=== PATIENT | female | born 2000 | race Two or more races ===

== ENCOUNTER 2021-07-18 17:53 | Emergency (ER) | payer OTHER | END 2021-07-18 20:52 | disposition home or self-care (01) | LOC: NAV ERS 17:53 | DX: O9A.213 Injury, poisoning and certain other consequences of external causes complicating pregnancy, third trimester (principal); S02.2XXA Fracture of nasal bones, initial encounter for closed fracture; W22.8XXA Striking against or struck by other objects, initial encounter; Z3A.28 28 weeks gestation of pregnancy | CPT/HCPCS: 70450; 70486 ==